=== PATIENT | female | born 1940 | race Caucasian/White ===

== ENCOUNTER → 2023-09-06 13:07 | Outpatient (REF) | payer MEDICARE, OTHER, SELFPAY | LOC: RAD 13:07 | PROVIDERS: ATTENDING PHYSICIAN Internal Medicine | DX: M54.32 Sciatica, left side (principal) | CPT/HCPCS: 72110 ==

== ENCOUNTER 2023-11-25 16:08 | Emergency (ER) | payer MEDICARE, OTHER, SELFPAY ==
[2023-11-25 16:11] VITALS: BP 135/63
[2023-11-25 16:30] LABS: % Basophils 0.7 % (0-2); % Immature Granulocytes 0.4 % (0-0.5); % Lymphocytes 39.2 % (20.5-51.1); % Monocytes 6.1 % (1.7-9.3); % Neutrophils 51.6 % (42.2-75.2); Absolute Eosinophils 0.1 10^3/uL (0-0.7); Absolute Lymphocytes 2.2 10^3/uL (1.2-3.4); Absolute Monocytes 0.3 10^3/uL (0.1-0.6); Absolute Neutrophils 2.9 10^3/uL (1.4-6.5); Hematocrit 35.9 % (37.0-47.0); Hemoglobin 12.2 g/dL (12.0-16.0); Mean Corpuscular Hgb 30.4 pg (27.0-31.0); Mean Corpuscular Volume 89.5 fL (81.0-99.0); Mean Platelet Volume 11.1 fL (7.4-10.4); Nucleated Red Blood Cells % 0 %; Platelet Count 217 10^3/uL (130-400); Red Blood Cell Count 4.01 10^6/uL (4.20-5.40); Red Cell Dist. Width 13.6 % (11.5-14.5); White Blood Cell Count 5.6 10^3/uL (4.8-10.8)
[2023-11-25 16:50] LABS: ALT (SGPT) 18 U/L (0-35); AST (SGOT) 27 U/L (14-36); Albumin 4.5 g/dl (3.5-5.0); Alkaline Phosphatase 65 U/L (38-126); Blood Urea Nitrogen 19 mg/dl (7-17); Calcium 9.9 mg/dl (8.4-10.2); Carbon Dioxide 24 mmol/L (22-30); Chloride 106 mmol/L (98-107); Glucose 120 mg/dl (70-99); Potassium 4.4 mmol/L (3.5-5.1); Sodium 138 mmol/L (135-145); Total Bilirubin 0.5 mg/dl (0.2-1.3); Total Protein 7.2 g/dl (6.3-8.2); eGFR > 60.00
[2023-11-25 16:54] LABS: Troponin I < 0.012 ng/ml
[2023-11-25 17:20] VITALS: BP 121/58
[2023-11-25 18:00] VITALS: BP 118/58
[2023-11-25 19:00] VITALS: BP 121/62
--- NOTE | 2023-11-25 19:00 | ED.GENMED ---
History of Present Illness
General
Chief Complaint: Dizziness
Time Seen by Provider: 11/25/23 19:00
History of Present Illness
History of Present Illness:
HPI: The patient presents with 1 week of intermittent headaches primarily at night (described as every other night) but she has not had this in the past. She also says that she has some intermittent dizziness as well. She denies any chest
discomfort. She states that she recently had a surgery for amblyopia and intermittently has double vision but that is not necessarily acute.
EXAM:
GENERAL: Well appearing in no distress
HEENT: Moist oral mucosa, disconjugate gaze noted
CARDIOVASCULAR: No murmurs, normal heart rate, regular rhythm, No chest wall tenderness
PULMONARY: No respiratory distress, breath sounds are clear and equal
ABDOMEN: Soft with no peritoneal signs, no tenderness
NEUROLOGIC: Excellent strength all extremities, no coordination deficits
PSYCHIATRIC: Appropriate mental status, normal insight and judgement
EXTREMITIES: Nontender, no edema, moves all extremities equally
SKIN: No rash, no lesions
TIME OF INITIAL ENCOUNTER: 7:05 PM
NUMBER AND COMPLEXITY OF PROBLEMS ADDRESSED AT THE ENCOUNTER
� Chronic conditions affecting care: Amblyopia, anemia, anxiety
� Acute Exacerbation and/or Progression of Chronic Illness: This is an acute problem
� Differential Diagnosis includes: Intracranial pathology, dehydration, electrolyte normality, anemia, dysrhythmia
AMOUNT AND/OR COMPLEXITY OF DATA TO BE REVIEWED AND ANALYZED
� I performed an independent evaluation of and my interpretation is:
EKG: Sinus 53, no acute ST abnormality
CT: CT head shows no acute abnormality
X-rays:
Laboratory Studies: CBC normal, chemistries unremarkable, troponin less than 0.012
Other:
� Review of other/old records: I reviewed records. The patient had a colonoscopy in 2020.
� Clinical information was obtained by an independent historian: None needed
� Prescriptions/Medications Considered but not given: Offered/considered analgesia over the patient declines
� Further testing considered but not performed:
RISK OF COMPLICATIONS AND/OR MORBIDITY OR MORTALITY OF PATIENT MANAGEMENT
� Social determinants of health affecting care: Lives at home
� Discussion with other providers:
� Escalation of care including admission/observation vs risk of discharge considered: The patient has a nonfocal neurologic examination but has new headaches. Given her age, will obtain CT imaging. Basic labs unremarkable. On
reassessment at 8:30 PM, the patient is comfortable in appearance. No indication for admission to the hospital.
Past History
Past History
ED Past Medical History: Other ('lazy eye' left. shoulder injury ); Negative Arrthythmia, Asthma, CAD, Cancer, CHF, COPD, Fibromyalgia, GERD, HTN, Hypercholesterolemia, IDDM or NIDDM
ED Past Surgical History: Other (Cataracts)
Social History
Tobacco: Non-smoker
Alcohol: Occasional
Drug: None
Personal:
Living: with family
Employment: Employed (Psychologist)
Family History
Family History: Hypertension; Negative Early CAD or CAD
Phy Exam
Physical Exam
Physical Exam:
See HPI
Course
Orders/Labs/Results
Orders:
Orders
11/25/23 16:13
Electrocardiogram (*1) Urgent
Reason for Study: Palpitations
EKG- Treatment ONCE
11/25/23 16:17
Complete Blood Count/With Diff Urgent
Comprehensive Metabolic Panel Urgent
Troponin I Urgent
11/25/23 19:06
CT Head W/o Iv Contrast Urgent
Comment:
Reason For Exam: worsening TAPIA and dizziness
Abnormal Lab Results
11/25/23
16:17
RBC 4.01 L 10^6/uL
(4.20-5.40)
Hct 35.9 L %
(37.0-47.0)
MPV 11.1 H fL
(7.4-10.4)
BUN 19 H mg/dl
(7-17)
Glucose 120 H mg/dl
(70-99)
11/25/23 16:17
11/25/23 16:17
Vital Signs
Initial and Last Documented VS:
Initial Vital Signs
Temp Pulse Resp BP Pulse Ox
98.4 F 61 18 135/63 99
11/25/23 16:11 11/25/23 16:11 11/25/23 16:11 11/25/23 16:11 11/25/23 16:11
Last Documented Vital Signs
Temp Pulse Resp BP Pulse Ox
98.4 F 53 16 121/62 97
11/25/23 16:11 11/25/23 19:15 11/25/23 20:00 11/25/23 19:00 11/25/23 19:15
*Critical Care Note
Total Time (30-74mins, 75-104mins- exclusive of procedures): Not Applicable
ED Attending Note
-
Portions of this chart may have been created with voice recognition software.� Occasional wrong word or��sound alike� substitutions may have occurred due to the inherent limitations of voice recognition software.
Discharge Plan
Departure
Patient Disposition: Home (Routine Discharge)
Date of Disposition: 11/25/23
Time of Disposition: 20:37
Patient with high blood pressure during this ER visit?: Yes
Discharge Problem:
Headache
Instructions: Headache, Adult ED, Dizziness
Prescriptions:
No Action
docosahexaenoic acid-epa 1 CAP capsule
1 cap PO MOWEFR
escitalopram oxalate [Lexapro] 5 MG tablet
10 mg PO DAILY
levothyroxine 25 MCG tablet
25 mcg PO DAILY
cyclosporine [Restasis] 10 DROPS dropperette
0.4 ml BOTH EYES BID
ondansetron 4 MG tablet,disintegrating
4 mg PO TIDPRN PRN (Reason: nausea/vomiting) Qty: 10 0RF
omeprazole magnesium [Prilosec OTC] 20 MG tablet,delayed release (DR/EC)
20 mg PO DAILY Qty: 20 0RF
Referrals:
UNKNOWN - PT DOES,NOT KNOW [Family Provider] -
Activity Restrictions/Additional Instructions:
The cause of your symptoms is unclear. White count and hemoglobin and other basic labs are normal including normal kidney function. Cardiac blood work is also normal. CAT scan of the brain shows no acute abnormality. Tylenol is safest for
headache.
Interventions
Interventions:
*Risk Screen - Suicide Last Done: 11/25/23 16:11
*General Assessment Last Done: 11/25/23 16:11
*Neglect/Abuse Screening Last Done: 11/25/23 16:11
ED- Fall Risk Assessment Last Done: 11/25/23 17:23
*ED COVID-19 Vaccine History Last Done: 11/25/23 16:11
ED- Neurological Assessment Last Done: 11/25/23 17:23
ED- Cardiac Assessment Last Done: 11/25/23 17:23
ED Swallowing Screen Last Done: 11/25/23 17:23
Discharge Date and Time
Print Language: TAJIK
== END 2023-11-25 20:48 | disposition home or self-care (01) ==
LOC: EMR 16:08
PROVIDERS: Student in an Organized Health Care Education/Training Program; EMERGENCY PHYSICIAN Emergency Medicine
DX: R51.9 Headache, unspecified (principal); R42 Dizziness and giddiness; E11.36 Type 2 diabetes mellitus with diabetic cataract; E78.00 Pure hypercholesterolemia, unspecified; I11.0 Hypertensive heart disease with heart failure; I50.9 Heart failure, unspecified; I25.10 Atherosclerotic heart disease of native coronary artery without angina pectoris; K21.9 Gastro-esophageal reflux disease without esophagitis; M79.7 Fibromyalgia; Z82.49 Family history of ischemic heart disease and other diseases of the circulatory system
CPT/HCPCS: 99284; 70450; 80053; 84484; 85025; 93005

== ENCOUNTER → 2024-03-17 15:23 | Outpatient (REF) | payer MEDICARE, OTHER, SELFPAY | LOC: HWWDC 15:23 | PROVIDERS: ATTENDING PHYSICIAN Hospitalist; FAMILY PHYSICIAN Internal Medicine | DX: Z12.31 Encounter for screening mammogram for malignant neoplasm of breast (principal) | CPT/HCPCS: 77063; 77067 ==

== ENCOUNTER → 2024-04-04 09:11 | Outpatient (REF) | payer MEDICARE, OTHER, SELFPAY ==
[2024-04-04 15:10] LABS: ALT (SGPT) 19 U/L (0-35); AST (SGOT) 28 U/L (14-36); Albumin 4.4 g/dl (3.5-5.0); Alkaline Phosphatase 58 U/L (38-126); Blood Urea Nitrogen 16 mg/dl (7-17); Calcium 9.4 mg/dl (8.4-10.2); Carbon Dioxide 25 mmol/L (22-30); Chloride 106 mmol/L (98-107); Glucose 100 mg/dl (70-99); Potassium 4.6 mmol/L (3.5-5.1); Sodium 140 mmol/L (135-145); Total Bilirubin 0.5 mg/dl (0.2-1.3); eGFR > 60.00
== END ==
LOC: REG 09:11
PROVIDERS: ATTENDING PHYSICIAN Nurse Practitioner; FAMILY PHYSICIAN Internal Medicine
DX: R14.0 Abdominal distension (gaseous) (principal)
CPT/HCPCS: 36415; 80053

== ENCOUNTER → 2024-04-06 17:05 | Outpatient (REF) | payer MEDICARE, OTHER, SELFPAY | LOC: RAD 17:05 | PROVIDERS: ATTENDING PHYSICIAN Nurse Practitioner | DX: R14.0 Abdominal distension (gaseous) (principal) | CPT/HCPCS: 74177; Q9967 ==